=== PATIENT | female | born 1970 | race Caucasian/White ===

== ENCOUNTER → 2016-10-07 | Outpatient (CLI) | payer OTHER, MEDICAID ==
[~2016-10-07] MED LIST: CIPR-173 PO; HYDR12.56 PO; LISI40TA PO; LOSA50TA6 PO; METO-169 PO; OMEP20CA5 OR; PRAV20TA3 PO; RANI-226 PO
[2016-10-07 14:32] LABS: Basophils # (auto) 0.1 uL; Basophils % (auto) 0.6 % (0.0-2.0); Eosinophils # (auto) 0.1 uL; Eosinophils % (auto) 1.1 % (0.0-7.0); Hematocrit 44.6 % (36.0-46.0); Hemoglobin 14.8 g/dL (12.2-16.2); Lymphocytes # (auto) 2.8 uL; Lymphocytes % (auto) 30.8 % (10.0-50.0); Mean Corpuscular Hemoglobin 29.3 pg (28.0-32.0); Mean Corpuscular Hgb Conc. 33.1 g/dL (32.0-36.0); Mean Corpuscular Volume 88.6 fL (80.0-100.0); Mean Platelet Volume 9.2 fL (7.4-10.4); Monocytes # (auto) 0.7 uL; Monocytes % (auto) 7.5 % (0.0-12.0); Neutrophils # (auto) 5.5 uL; Platelet Count (auto) 368 10^3/uL (140-450); Red Cell Distribution Width 14.3 % (11.6-16.0); White Blood Cell 9.2 10^3/uL (4.4-10.8)
[2016-10-07 14:50] LABS: INR 1.07 (0.9-1.15)
[2016-10-07 15:04] LABS: Albumin 3.6 g/dL (3.4-5.0); BUN/Creatinine Ratio 12.5; Calcium 8.9 mg/dL (8.5-10.1); Potassium 3.8 mmol/L (3.5-5.1)
[2016-10-07 15:07] LABS: Bilirubin, Total 0.6 mg/dL (0.2-1.0); Total Protein 7.5 g/dL (6.4-8.2)
== END | disposition home or self-care (01) ==
LOC: LAB 14:06
PROVIDERS: ATTEND Podiatrist Foot & Ankle Surgery
DX: Z01.818 Encounter for other preprocedural examination (principal); M47.894 Other spondylosis, thoracic region; R79.1 Abnormal coagulation profile
CPT/HCPCS: 36415; 80053; 85025; 85610; 85730

== ENCOUNTER 2016-10-08 06:49 | Day surgery (SDC) | payer OTHER, MEDICAID ==
[~2016-10-08] VITALS: Ht 165.1 cm; Wt 117.5 kg
[~2016-10-08 06:49] MED LIST changes: -CIPR-173 PO; -HYDR12.56 PO; -LISI40TA PO
[2016-10-08] MEDS ORDERED: CLINDAMYCIN 600MG IV 50 ML IV ONE (07:23)
[2016-10-08] MEDS ORDERED: ROPIVACAINE 0.5% (5MG/ML) 20ML AMPULE IJ ONE (08:23)
[2016-10-08] MEDS ORDERED: NEOMYCIN-BACITRACIN-POLYM 15GM TOP OINT TOP ONE (08:24)
[2016-10-08] MEDS ORDERED: SILVER NITRATE-POTAS NITRA STICK TOP ONE (08:24)
[2016-10-08] MEDS ORDERED: BUPIVACAINE 0.75% INJ 10ML MPV SDV IJ ONE ×2 (08:32→09:07)
[2016-10-08] MEDS ORDERED: fentaNYL CITRATE 100 MCG/2 ML VL ONE (08:39)
[2016-10-08] MEDS ORDERED: KETOROLAC TROMETH 60MG/2ML VIAL IM ONE (08:39)
[2016-10-08] MEDS ORDERED: ONDANSETRON HCL 4 MG/2 ML VIAL ONE (08:39)
[2016-10-08] MEDS ORDERED: DEXAMETHASONE SOD PHOS 10MG/1ML VIAL INJ ONE (08:39)
[2016-10-08] MEDS ORDERED: LIDOCAINE HCL 2 %PF INJ 10ML AMP IJ ONE (09:05)
[2016-10-08] MEDS ORDERED: PROPOFOL 10 MG/ML 20 ML IV ONE (09:06)
[2016-10-08] MEDS ORDERED: methylPREDNISolone ACETATE 80 MG/ML VL ONE (09:07)
[2016-10-08] MEDS ORDERED: ONDANSETRON HCL 4 MG/2 ML VIAL IV ONE (09:30)
[2016-10-08] MEDS ORDERED: HYDROmorphone HCL 2 MG/ML VL IV PRN (09:30)
[2016-10-08 10:02] VITALS: BP 104/63
== END 2016-10-08 10:05 | disposition home or self-care (01) ==
LOC: SUR 06:49
PROVIDERS: ATTEND Podiatrist Foot & Ankle Surgery
DX: D36.7 Benign neoplasm of other specified sites (principal); F17.200 Nicotine dependence, unspecified, uncomplicated; I10 Essential (primary) hypertension; E66.01 Morbid (severe) obesity due to excess calories; K21.9 Gastro-esophageal reflux disease without esophagitis; J44.9 Chronic obstructive pulmonary disease, unspecified
CPT/HCPCS: 28041; 88305; J1040; J1100; J1885; J2405; J2704; J3010; J3490; L3260; Q4139

== ENCOUNTER 2018-07-12 06:34 | Day surgery (SDC) | payer OTHER, MEDICAID ==
[~2018-07-12] VITALS: Ht 165.1 cm; Wt 99.8 kg
[~2018-07-12 06:34] MED LIST changes: +ASPI81TA27 PO; +ATO40T PO; +CHOL20007 OR; -LOSA50TA6 PO; +MET5XLT PO; -METO-169 PO; +NAP500T PO; -OMEP20CA5 OR; +OMEP20CA74 OR; -PRAV20TA3 PO
[2018-07-12] MEDS ORDERED: LIDOCAINE 2%HCL (LOCAL ANESTH.) INJ 20ML MDV ONE (07:19)
[2018-07-12] MEDS ORDERED: fentaNYL CITRATE 100 MCG/2 ML VL ONE (07:21)
[2018-07-12] MEDS ORDERED: MIDAZOLAM HCL 1MG/1ML-2 ML VIAL ONE (07:22)
== END 2018-07-12 10:55 | disposition home or self-care (01) ==
LOC: CATH 06:34
PROVIDERS: ATTEND Specialist
DX: R55 Syncope and collapse (principal); F17.210 Nicotine dependence, cigarettes, uncomplicated; I10 Essential (primary) hypertension; E78.00 Pure hypercholesterolemia, unspecified; J45.909 Unspecified asthma, uncomplicated; E07.9 Disorder of thyroid, unspecified; E78.5 Hyperlipidemia, unspecified; Z82.49 Family history of ischemic heart disease and other diseases of the circulatory system; Z79.82 Long term (current) use of aspirin; Z79.899 Other long term (current) drug therapy; Z88.1 Allergy status to other antibiotic agents; Z88.5 Allergy status to narcotic agent; Z88.6 Allergy status to analgesic agent; Z88.8 Allergy status to other drugs, medicaments and biological substances
CPT/HCPCS: 93620; A6257; C1894; J1644; J2250; J3010; J7030; 99152; 99153

== ENCOUNTER → 2019-01-12 | Outpatient (CLI) | payer OTHER ==
[~2019-01-12] MED LIST changes: -NAP500T PO; -RANI-226 PO
[2019-01-12 08:41] LABS: Eosinophils # (auto) 0.2 uL; Hemoglobin 10.1 g/dL (12.2-16.2); Monocytes # (auto) 0.7 uL; Neutrophils # (auto) 3.1 uL; White Blood Cell 6.7 10^3/uL (4.4-10.8)
[2019-01-12 08:43] LABS: Basophils # (auto) 0.1 uL; Basophils % (auto) 0.9 % (0.0-2.0); Eosinophils % (auto) 2.8 % (0.0-7.0); Hematocrit 33.1 % (36.0-46.0); Lymphocytes # (auto) 2.7 uL; Lymphocytes % (auto) 39.7 % (10.0-50.0); Mean Corpuscular Hemoglobin 23.9 pg (28.0-32.0); Mean Corpuscular Hgb Conc. 30.6 g/dL (32.0-36.0); Mean Corpuscular Volume 78.1 fL (80.0-100.0); Monocytes % (auto) 10.2 % (0.0-12.0); Neutrophils % (auto) 46.4 % (37.0-80.0); Platelet Count (auto) 375 10^3/uL (140-450); Red Blood Cells 4.24 10^6/uL (4.0-5.20); Red Cell Distribution Width 16.9 % (11.8-14.3)
[2019-01-12 09:10] LABS: Albumin 3.1 g/dL (3.4-5.0); Potassium 3.9 mmol/L (3.5-5.1)
[2019-01-12 09:15] LABS: BUN/Creatinine Ratio 12.3; Bilirubin, Total 0.4 mg/dL (0.2-1.0)
== END | disposition home or self-care (01) ==
LOC: LAB 08:08
PROVIDERS: ATTEND Physician Assistant
DX: E55.9 Vitamin D deficiency, unspecified (principal); I10 Essential (primary) hypertension; I44.1 Atrioventricular block, second degree; E78.00 Pure hypercholesterolemia, unspecified; E04.1 Nontoxic single thyroid nodule
CPT/HCPCS: 36415; 80053; 80061; 82306; 84443; 85025

== ENCOUNTER → 2019-12-26 | Outpatient (CLI) | payer OTHER ==
[~2019-12-26] MED LIST changes: +ASPI-404 PO; -ASPI81TA27 PO; -MET5XLT PO; +METO-6 PO
[2019-12-26 16:14] LABS: Free T4 (Free Thyroxine) 1.13 ng/dL (0.89-1.76); T3 Total 1.33 ng/mL (0.60-1.81)
== END | disposition home or self-care (01) ==
LOC: LAB 15:36
PROVIDERS: ATTEND Physician Assistant
DX: E04.1 Nontoxic single thyroid nodule (principal)
CPT/HCPCS: 84439; 84480